=== PATIENT | female | born 1940 | race Caucasian/White ===

== ENCOUNTER 2024-07-22 05:52 | Day surgery (SDC) | payer MEDICARE, OTHER ==
[2024-07-09 14:41] VITALS: BP 130/65
[~2024-07-22] VITALS: Ht 157.5 cm; Wt 61.4 kg
[~2024-07-22 05:52] MED LIST: ACETAMINOPHEN500 MG PO; BAYER CHEWABLE81 MG PO; CEFUROXIME250 MG PO; CELECOXIB200 MG PO; GABAPENTIN300 MG PO; HAIR SKIN NAIL1 EACH PO; HYDROCHLOROTHIA25 MG PO; LACTATED RINGER'S 1,000 ML IV SCH; MULTI VITAMIN1 EACH PO; OXYCODONE HCL5 MG PO; Q-SORB CO Q-10100 MG PO; SENNA LAX8.6 MG PO; XARELTO10 MG PO; ZESTRIL20 MG PO
[2024-07-22 06:00] VITALS: BP 155/54
[2024-07-22] MEDS ORDERED: Ropivacaine HCl 20 MG/10 ML AMP ONE (06:01)
[2024-07-22] MEDS ORDERED: Ropivacaine HCl 0.5% 30 ML VIAL ONE (06:38)
[2024-07-22] MEDS ORDERED: DEXAMETHASONE SOD PHOS 4 MG/ML VIAL ONE (06:38)
[2024-07-22] MEDS ORDERED: propofoL 200 MG/20 ML VIAL ONE ×3 (06:38→08:29)
[2024-07-22] MEDS ORDERED: SODIUM CHLORIDE 0.9% 20 ML IV ONE (06:38)
[2024-07-22] MEDS ORDERED: dexmedeTOMIDine HCl 200 MCG/2 ML VIAL ONE (06:38)
[2024-07-22] MEDS ORDERED: LIDOCAINE HCL 2% 5 ML SDV ONE (06:38)
[2024-07-22] MEDS ORDERED: CEFAZOLIN SODIUM 2 GM/20 ML SYR IV SCH ×3 (07:00→15:00)
[2024-07-22] MEDS ORDERED: OXYCODONE HCL 5 MG TAB PO SCH (07:00)
[2024-07-22] MEDS ORDERED: LIDOCAINE HCL 1% 5 ML SDV INJ ONE (07:00)
[2024-07-22] MEDS ORDERED: GABAPENTIN 600 MG TAB PO SCH (07:00)
[2024-07-22] MEDS ORDERED: IBLOOD GLUCOSE TEST STRIP 1 EA TEST VI PRN (07:00)
[2024-07-22] MEDS ORDERED: ondansetron HCL 4 MG TAB PO SCH (07:00)
[2024-07-22] MEDS ORDERED: TRANEXAMIC ACID 2,000 MG in SODIUM CHLORIDE 0.9% 100 ML IV SCH (07:00)
[2024-07-22] MEDS ORDERED: INTRA-ARTICULAR ANALGESIC INJECTION XX SCH (07:00)
[2024-07-22] MEDS ORDERED: PANTOPRAZOLE SODIUM 40 MG TABEC PO SCH (07:00)
[2024-07-22] MEDS ORDERED: ROPIVACAINE IN 0.9% SOD CHL/PF 545 ML ELS.PMP.HR IRRIGATION SCH (07:00)
[2024-07-22] MEDS ORDERED: KETOROLAC TROMETHAMINE 30 MG/ML VIAL IV PRN (07:30)
[2024-07-22] MEDS ORDERED: OXYCODONE HCL 5 MG TAB PO PRN (07:30)
[2024-07-22] MEDS ORDERED: ePHEDrine sulfate 50 MG/ML AMP ONE (07:50)
[2024-07-22] MEDS ORDERED: ondansetron HCL 4 MG/2 ML VIAL ONE (07:50)
[2024-07-22] MEDS ORDERED: CEFUROXIME250 MG PO (08:46)
[2024-07-22] MEDS ORDERED: XARELTO10 MG PO (08:46)
[2024-07-22] MEDS ORDERED: GABAPENTIN300 MG PO (08:47)
[2024-07-22] MEDS ORDERED: CELECOXIB200 MG PO (08:47)
[2024-07-22] MEDS ORDERED: OXYCODONE HCL5 MG PO (08:47)
--- NOTE | 2024-07-22 09:05 | NUR ---
07/22/24 0905 Dior George 0858 PT TO PACU ALERT AND AWAKE. DENIES PAIN AND NAUSEA. PT CONVERSING WITH STAFF
--- NOTE | 2024-07-22 09:26 | NUR ---
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 PT REPORTS PAIN IS 5/10 AND VO FOR IV OFIRMEV RECEIVED FROM DAVINA DYKES. IV OFIRMEV STARTED, SEE EMAR. NO ACUTE CHANGES FROM PREVIOUS ASSESSMENT. PT TOLERATED ALL ORALS WITHOUT DIFFICULTY SWALLOWING OR ONSET OF NAUSEA. CALL LIGHT WITHIN REACH. PT DAUGHTER AT BEDSIDE.
[2024-07-22 09:30] VITALS: BP 141/42
--- NOTE | 2024-07-22 09:30 | NUR ---
PT ARRIVES TO DS UNIT FROM PACU VIA STRETCHER. PT IS A&O, ASKING QUESTIONS APPROPRIATELY. PT REPORTS PAIN IS 6/10 ON POSTERIOR KNEE, ICE PACK PLACED POSTERIOR AND IV TORADOL GIVEN (SEE EMAR). SPINAL IS RESOLVED. PT REPORTS SENSATION ON ANTERIOR AND POSTERIOR SIDES OF SURGICAL EXTREMITY, ABLE TO WIGGLE TOES. PT ON RA W/O2>90%, RESPIRATIONS EVEN AND UNLABORED, NO SIGNS OF DISTRESS. PT TOLERATING ICE WATER WITHOUT DIFFICULTY SWALLOWING, CRACKERS AND APPLESAUCE PROVIDED. REPORT RECEIVED FROM JEFFERY HAAS W/DAUGHTER AT BEDSIDE. CALL LIGHT WITHIN REACH, PT REPORTS NO FURTHER NEEDS AT THIS TIME.
[2024-07-22] MEDS ORDERED: TRANEXAMIC ACID 2,000 MG in SODIUM CHLORIDE 0.9% 100 ML IV ONE (09:37)
--- NOTE | 2024-07-22 09:40 | NUR ---
IN PT ROOM TO ASSIST W/TRANSFER TO BEDSIDE COMMODE. PT SITS AT BEDSIDE AND REPORTS NO ONSET OF DIZZINESS OR NAUSEA. PT URINE VOIDS 750 ML OF CLEAR/YELLOW URINE. PT BACK TO BED W/HEEL PROTECTORS, FOOT PUMPS, CRYO CUFF, CAROL HOSE, AND ONQ PUMP IN PLACE. IV SITE SALINE LOCKED. CALL LIGHT WITHIN REACH, PT STATES NO FURTHER NEEDS OR QUESTIONS AT THIS TIME.
[2024-07-22 10:26] VITALS: BP 147/65
[2024-07-22] MEDS ORDERED: ACETAMINOPHEN 1,000 MG/100 ML VIAL IV ONE (10:30)
--- NOTE | 2024-07-22 11:30 | NUR ---
PT WORKING W/RAD WITH PHYSICAL THERAPY AT THIS TIME.
--- NOTE | 2024-07-22 11:50 | NUR ---
PT BACK FROM PHYSICAL THERAPY. PER RAD Alvarez/PHYSICAL THERAPY, PT PASSED. PT REPORTS PAIN TOLERABLE AT THIS TIME AND NO NEED FOR PRN PAIN MED. SURGICAL SITE REMAINS C/D/I, NO SIGNS OF BLEEDING. VERBAL ORDER FOR DC RECEIVED FROM DAVINA DYKES. PT IN ROOM GETTING DRESSED AT THIS TIME, DAUGHTER IN ROOM TO ASSIST. CALL LIGHT WITHIN REACH.
[2024-07-22 12:12] VITALS: BP 137/58
--- NOTE | 2024-07-22 12:20 | NUR ---
IN PT ROOM FOR DC EDUCATION. PT REPORTS PAIN 1/10 AND TOLERABLE AT THIS TIME, ICE PACK PROVIDED FOR RIDE HOME. NO ACUTE CHANGES FROM PREVIOUS SURGICAL ASSESSMENT, DRESSING C/D/I. IV DC'ED, WNL. PT DEMONSTRATES INCENTIVE SPIROMETER USE X2 CORRECTLY. PT STATES VERBAL UNDERSTANDING TO DC EDUCATION AT THIS TIME AND NO FURTHER QUESTIONS. PT OFF OF UNIT VIA WC TO PASSENGER SIDE OF DAUGHTER'S VEHICLE. PT STATES NO FURTHER NEEDS AT THIS TIME, ALL BELONGINGS IN PT POSSESSION.
[2024-07-22] MEDS ORDERED: GABAPENTIN 300 MG CAP PO SCH (15:00)
[2024-07-22] MEDS ORDERED: ACETAMINOPHEN 500 MG TAB PO SCH (15:00)
--- NOTE | 2024-07-22 15:08 | NUR ---
DUE TO COMPUTER ISSUES THIS IS PACU DOCUMENTATION: PT TO PACU AT 0858 VITALS 0900 BP125/69 (83) SPO2 96% ON RA P87 RR20 TEMP97.6 0905 BP131/57 (78) SPO2 93% ON RA P85 RR24 0910 BP130/66 (80) SPO2 95% ON RA P87 RR20 0915 BP137/59 (81) SPO2 96% ON RA P86 RR19 TEMP97.2 PT TO PACU ALERT AND AWAKE ON ROOM AIR. PT CONVERSING WITH STAFF. ICE TO RT KNEE VIA CRYO CUFF. 0910 PT TAKING SIPS OF WATER TOLERATES WELL. PTS SPINAL MOSTLY RESOLVED SHE IS ABLE TO MOVE BOTH LEGS FREELY. CMS IN TACT BILAT DRESSING CLEAN DRY AND INTACT. IV PATENT AND INTACT 0920 PT TRANSFERED TO DAY SURGERY IN [place]. REPORT GIVEN TO BHAVIN HAAS
[2024-07-22] MEDS ORDERED: SENNOSIDES 1 TAB PO SCH (21:00)
--- NOTE | 2024-07-22 22:02 | EKG ---
[facility] [address] [place] [address] Signed Unusual P axis, possible ectopic atrial rhythm Abnormal ECG When compared with ECG of 04-DEC-2023 06:18, No significant change was found Lead II failure Confirmed by Sangeeta Currie MD () on 07/22/2024 10:02:30 PM Electronically Signed By: SANGEETA CURRIE MD [id number]/22/[id number] PATIENT NAME: TEOFILO CRYSTAL Electrocardiogram DATE OF : 36 PHYSICIAN: SANGEETA CURRIE MD REPORT #: [id number] REPORT IS CONFIDENTIAL AND NOT TO BE RELEASED WITHOUT AUTHORIZATION
[2024-07-23] MEDS ORDERED: CELECOXIB 200 MG CAP PO SCH (08:00)
[2024-07-23] MEDS ORDERED: Rivaroxaban 10 MG TAB PO SCH (08:00)
[2024-07-23] MEDS ORDERED: cefuroxime axetiL 250 MG TAB PO SCH (09:00)
--- NOTE | 2024-07-23 14:54 | EKG ---
[facility] [address] [facility] [place] [address] Signed Normal sinus rhythm Normal ECG When compared with ECG of 22-JUL-2024 06:50, Sinus rhythm has replaced Ectopic atrial rhythm Nonspecific T wave abnormality, improved in Inferior leads Confirmed by Sangeeta Currie MD () on 07/23/2024 2:54:17 PM Electronically Signed By: SANGEETA CURRIE MD 07/23/24 1454 PATIENT NAME: TEOFILO CRYSTAL Electrocardiogram DATE OF : 36 PHYSICIAN: SANGEETA CURRIE MD REPORT #: [id number] REPORT IS CONFIDENTIAL AND NOT TO BE RELEASED WITHOUT AUTHORIZATION
--- NOTE | 2024-07-29 07:00 | OR ---
[facility] [address] [facility] [place], [place] [address] Signed DATE OF OPERATION: 07/22/2024 SURGEON: Zahida George MD PREOPERATIVE DIAGNOSIS: Right knee degenerative joint disease, severe. POSTOPERATIVE DIAGNOSIS: Right knee degenerative joint disease, severe. PROCEDURE PERFORMED: Right total knee arthroplasty with Rashid. ASSISTANTS: 1. Ursula Wells PA-C. Ursula was present and critical for all portions of procedure. 2. . ANESTHESIA: Spinal. BLOOD LOSS: 165 mL. TOURNIQUET TIME: Zero. IMPLANTS: [employer] Triathlon size 4 femur, 3 tibia, 9 mm polyethylene, 29 mm patella. BRIEF HISTORY: Mary Jane is an 83-year-old female with progressive worsening of osteoarthritis. She had undergone total knee on the left with good results. She wished to proceed with the right. Risks, benefits, and alternatives were discussed and she understood, wished to proceed. PROCEDURE IN DETAIL: Once consent was obtained, she was taken to the operating room. After adequate anesthesia, she was placed on operating room table on the right hip bump. The leg was then prepped and draped in a standard sterile fashion. Standard anterior approach Electronically Signed By: ZAHIDA GEORGE MD 07/29/24 0700 PATIENT NAME: MARY JANE CRYSTAL OPERATIVE REPORT DATE OF : 36 REPORT #: [id number] PHYSICIAN: ZAHIDA GEORGE MD PCP: СЕРГЕЙ CANCINO REPORT IS CONFIDENTIAL AND NOT TO BE RELEASED WITHOUT AUTHORIZATION [facility] [address] [place], [place] [address] Signed through midline incision was carried through the skin and subcutaneous tissue. Low mid vastus arthrotomy was performed. All bleeders were cauterized. The MCL was elevated as a sleeve around the posteromedial corner. The infrapatellar fat pad was excised. The ACL was transected as was the medial and lateral meniscal attachments. The navigation computer arrays were then placed in the medial femoral condyle and the proximal tibia. The leg was then registered with the computer followed by the fine anatomic points of the knee. Varus and valgus poses were taken and adjustments were made to the tibia, adding more varus and a little external rotation on the femur. The robot was then brought in. The four straight cuts and two angle cuts were made with care taken to protect the patellar tendon and MCL. The bony remnants were removed as were any remaining osteophytes. The posterior osteophytes were removed off the femur, but no posterior release was performed. Trials were then positioned. The knee was taken from 0 to 130 degrees with good stability and good patellar tracking. The patella was then cut sized and drilled for a 29 mm patella. The distal femoral drill holes were made and the proximal tibia was finished using the keel punch and drill holes. Once this was completed, the prosthesis was obtained. The tibia was then impacted until it was seated flush on the bone. The polyethylene was snapped into position and the femur was impacted until it was flushed. The knee was then extended and loaded. The patella was clamped into position until again it was seated flush. The knee was again taken through range of motion. Patellar tracking was good and the flexion and extension was stable. The knee was then irrigated with one bottle of Surgiphor and 1 L of normal saline. The periarticular soft tissues were injected with 100 mL of ropivacaine and Toradol mixture. The On-Q pain pump was percutaneously placed into the adductor canal from the suprapatellar pouch. The arthrotomy was then closed using combination of #2 FiberWire and #2 Stratafix. The subcutaneous tissue with 0 Stratafix and the skin with 3-0 Stratafix. The skin was sealed with LiquiBand, Steri-Strips and dressed with an Acticoat-7 dressing. ABD and Agustin wrap were then placed. She was taken to the recovery room in satisfactory condition. All sponge, needle, and instrument counts were correct. Zahida George MD BA/MODL /[id number] Electronically Signed By: ZAHIDA GEORGE MD 07/29/24 0700 PATIENT NAME: MARY JANE CRYSTAL OPERATIVE REPORT DATE OF : 36 REPORT #: [id number] PHYSICIAN: ZAHIDA GEORGE MD PCP: СЕРГЕЙ CANCINO PAC REPORT IS CONFIDENTIAL AND NOT TO BE RELEASED WITHOUT AUTHORIZATION [facility] [address] [place] [address] [place], [place] [address] Signed Copies: ~ Electronically Signed By: ZAHIDA GEORGE MD 07/29/24 0700 PATIENT NAME: MARY JANE CRYSTAL OPERATIVE REPORT DATE OF : 36 REPORT #: [id number] PHYSICIAN: ZAHIDA GEORGE MD PCP: СЕРГЕЙ CANCINO REPORT IS CONFIDENTIAL AND NOT TO BE RELEASED WITHOUT AUTHORIZATION
== END 2024-07-22 12:44 | disposition home or self-care (01) ==
LOC: DS 05:52
PROVIDERS: ATTEND Specialist
PROC: 0SRC0JZ Replacement of Right Knee Joint with Synthetic Substitute, Open Approach (ICD-10-PCS; principal; 2024-07-22 07:00)
DX: M17.11 Unilateral primary osteoarthritis, right knee (principal); I10 Essential (primary) hypertension; E78.00 Pure hypercholesterolemia, unspecified; Z79.82 Long term (current) use of aspirin; Z79.899 Other long term (current) drug therapy
CPT/HCPCS: 01400; 64447; 64450; 73560; 76942; 93005; 93010; 97161; A9270; C1713; C1776; J0131; J0690; J1100; J1885; J2003; J2405; J2704; J2795; J7121; J7999